=== PATIENT | female | born 1935 | race Caucasian/White ===

== ENCOUNTER 2018-06-20 09:28 | Inpatient (IN) ==
--- NOTE | 2018-06-20 10:35 | ED ---
HPI General Chief Complaint: Fall Stated Complaint: medical Time Seen by Provider: 06/20/18 09:43 Source: patient Mode of arrival: ambulatory Limitations: no limitations History of Present Illness HPI Narrative: 83-year-old female presents to the emergency department after a fall that occurred at home today. Patient states she lost her shoe while at home today, slipped, tripped and fell against a wall. She states that she fell and hit her head. She also states she had her hips. She had a difficult time determining which hip is worse but states her right is worse than her left. Says she was able to stand and ambulate to the stretcher in her home for EVAC. Patient states her pain is 9/10 and nonradiating. Denies weakness in her lower extremities. Denies use of blood thinners. Denies loss of consciousness or headache. Denies neck or back pain. MD complaint: Reports fall Onset (ago): minute(s) Fall from: standing Fall witnessed: no Place fall occurred: home Loss of consciousness: none Prolonged down time: no Symptoms prior to fall: Reports none Context: Reports tripped/slipped Location of injury: Reports head Severity: severe Quality: Reports aching Associated symptoms (after fall): Reports denies Related Data Home Medications Medication Instructions Recorded Confirmed amlodipine 5 mg PO DAILY 06/20/18 06/20/18 citalopram 20 mg PO DAILY 06/20/18 06/20/18 levothyroxine 100 mcg PO DAILY 06/20/18 06/20/18 losartan 25 mg PO DAILY 06/20/18 06/20/18 Allergies Allergy/AdvReac Type Severity Reaction Status Date / Time amitriptyline Allergy Severe Abdominal Verified 06/20/18 09:44 Pain codeine Allergy Severe Abdominal Verified 06/20/18 09:44 Pain diatrizoate meglumine Allergy Severe hives/resp Verified 06/20/18 09:44 failure gadobenic acid Allergy Severe hives/resp Verified 06/20/18 09:44 failure gadodiamide Allergy Severe hives/resp Verified 06/20/18 09:44 failure gadoteridol Allergy Severe hives/resp Verified 06/20/18 09:44 failure iodine Allergy Severe Abdominal Verified 06/20/18 09:44 Pain iodixanol Allergy Severe hives/resp Verified 06/20/18 09:44 failure iohexol Allergy Severe hives/resp Verified 06/20/18 09:44 failure lactose Allergy Severe DIARRHEA, Verified 06/20/18 09:44 HIVES morphine Allergy Severe Abdominal Verified 06/20/18 09:44 Pain penicillin G Allergy Severe Abdominal Verified 06/20/18 09:44 Pain potassium iodide Allergy Severe Agitation Verified 06/20/18 09:44 povidone-iodine Allergy Severe Agitation Verified 06/20/18 09:44 salsalate Allergy Severe Agitation Verified 06/20/18 09:44 Sulfa (Sulfonamide Allergy Severe Agitation Verified 06/20/18 09:44 Antibiotics) ALKASELTZER Allergy Severe HIVES Uncoded 11/23/13 18:26 Review of Systems ROS: all other systems reviewed are negative [facility] Social History Social History Substance History: No History of Abuse Second Hand Smoke Exposure: No Smoking Status: Former smoker Tobacco Type: Cigarettes How Often Do You Have a Drink Containing Alcohol: Never Recent Travel in [facility] within the Last 8 Weeks: No Recent Out of Country Travel within the Last 8 Weeks: No Immunization History Tetanus Immunization: <5 Years Exam Narrative Exam Narrative: GENERAL: WD, WN in NAD, laying on her right side. SKIN: Focused skin assessment warm/dry. HEAD: Atraumatic. Normocephalic. EYES: Pupils equal and round. No scleral icterus. No injection or drainage. ENT: No nasal bleeding or discharge. Mucous membranes pink and moist. No tonsillar hypertrophy or exudate. NECK: Trachea midline. No JVD. No meningismus. No midline tenderness CARDIOVASCULAR: Regular rate and rhythm. No murmur appreciated. RESPIRATORY: No accessory muscle use. Clear to auscultation. Breath sounds equal bilaterally. GASTROINTESTINAL: Abdomen soft, non-tender, nondistended. Hepatic and splenic margins not palpable. No CVAT. MUSCULOSKELETAL: No obvious deformities. No clubbing. No cyanosis. No edema. No tenderness to palpation of the calves. Sensation intact to bilateral lower extremities. TTP to bilateral hips without deformities. NEUROLOGICAL: Awake and alert. No obvious cranial nerve deficits. Motor grossly within normal limits. Normal speech. PSYCHIATRIC: Appropriate mood and affect; insight and judgment normal. Course Initial Documented Vital Signs Temperature 98.8 F 06/20/18 09:45 Pulse Rate 70 06/20/18 09:45 Respiratory Rate 16 06/20/18 09:45 Blood Pressure 157/70 H 11/23/18 09:45 Pulse Oximetry 96 06/20/18 09:45 Last Documented Vital Signs Temperature 98.8 F 06/20/18 09:45 Pulse Rate 75 06/20/18 09:51 Respiratory Rate 18 06/20/18 16:08 Blood Pressure 129/97 H 06/20/18 09:51 Pulse Oximetry 93 L 06/20/18 09:51 Medical Decision Making MDM Narrative Medical decision making narrative: 83y female presents to the ED via EVAC after a split and fall that occurred just prior to arrival. Denies LOC but did hit her head. PMHx includes HTN, hypothyroid, and anxiety. MEKHI yesterday afternoon except for hydrocodone in the ED for hip pain here in the ED. She did take her daily BASA today. Again, does not take blood thinners. Patient has a subcapital femoral neck fracture of the right hip. Labs, EKG, chest x-ray ordered as preop. Labs are stable. Of note, WBC 15.4, neutrophil % 77.1, BUN/Cr 06/28. I spoke with Dr. Nelson who will perform surgery today. Patient will be admitted to Dr. Martinez. Medical Screen Exam Complete: Yes Emergency Medical Condition: Yes Differential Diagnosis Differential Diagnosis: Right hip fracture, contusion, dislocation. Left hip fracture, contusion, abrasion, left leg fracture, head trauma Lab Data Result diagrams: 06/20/18 11:36 06/20/18 11:36 Lab Results 06/20/18 06/20/18 06/20/18 Range/Units 11:36 11:36 11:36 WBC 15.4 H (4.0-11.0) th/mm3 RBC 4.11 (4.00-5.30) mil/mm3 Hgb 11.9 (11.6-15.3) gm/dL Hct 35.1 (35.0-46.0) % MCV 85.4 (80.0-100.0) fL MCH 29.1 (27.0-34.0) pg MCHC 34.0 (32.0-36.0) % RDW 14.8 (11.6-17.2) % Plt Count 228 (150-450) th/mm3 MPV 8.5 (7.0-11.0) fL Neut % (Auto) 77.1 H (16.0-70.0) % Lymph % (Auto) 16.9 (9.0-44.0) % [place] % (Auto) 5.2 (0.0-8.0) % Eos % (Auto) 0.6 (0.0-4.0) % Baso % (Auto) 0.2 (0.0-2.0) % Neut # (Auto) 11.9 H (1.8-7.7) th/mm3 Lymph # (Auto) 2.6 (1.0-4.8) th/mm3 [place] # (Auto) 0.8 (0.0-0.9) th/mm3 Eos # (Auto) 0.1 (0.0-0.4) th/mm3 Baso # (Auto) 0.0 (0.0-0.2) th/mm3 WBC Differential . Differential Comment Auto diff final PT 10.4 (9.8-11.6) sec INR 1.0 Ratio APTT 30.5 (23.4-31.7) sec Sodium 137 (136-145) meq/L Potassium 3.8 (3.5-5.1) meq/L Chloride 100 (98-107) meq/L Carbon Dioxide 31.7 (21.0-32.0) meq/L Anion Gap 5 (5-15) meq/L BUN 12 (7-18) mg/dL Creatinine 1.31 H (0.50-1.00) mg/dL Estimated GFR 39 L (>89) mL/min Random Glucose 99 (74-106) mg/dL Calcium 8.5 (8.5-10.1) mg/dL Total Bilirubin 0.6 (0.2-1.0) mg/dL AST 30 (15-37) U/L ALT 24 (10-53) U/L Alkaline Phosphatase 67 (45-117) U/L Total Protein 7.3 (6.4-8.2) g/dL Albumin 3.8 (3.4-5.0) g/dL Urine Color (Yellw/Straw) Urine Clarity (Clear) Urine pH (5.0-8.5) Ur Specific [place] (1.002-1.035) Urine Protein (Neg-Trace) mg/dL Urine Glucose (UA) (Negative) mg/dL Urine Ketones (Negative) mg/dL Urine Occult Blood (Negative) Urine Nitrate (Negative) Urine Bilirubin (Negative) Urine Urobilinogen (Less than 2) mg/dL Ur Leukocyte Esterase (Negative) Ur Microscopic Review 06/20/18 Range/Units 15:00 WBC (4.0-11.0) th/mm3 RBC (4.00-5.30) mil/mm3 Hgb (11.6-15.3) gm/dL Hct (35.0-46.0) % MCV (80.0-100.0) fL MCH (27.0-34.0) pg MCHC (32.0-36.0) % RDW (11.6-17.2) % Plt Count (150-450) th/mm3 MPV (7.0-11.0) fL Neut % (Auto) (16.0-70.0) % Lymph % (Auto) (9.0-44.0) % [place] % (Auto) (0.0-8.0) % Eos % (Auto) (0.0-4.0) % Baso % (Auto) (0.0-2.0) % Neut # (Auto) (1.8-7.7) th/mm3 Lymph # (Auto) (1.0-4.8) th/mm3 [place] # (Auto) (0.0-0.9) th/mm3 Eos # (Auto) (0.0-0.4) th/mm3 Baso # (Auto) (0.0-0.2) th/mm3 WBC Differential Differential Comment PT (9.8-11.6) sec INR Ratio APTT (23.4-31.7) sec Sodium (136-145) meq/L Potassium (3.5-5.1) meq/L Chloride (98-107) meq/L Carbon Dioxide (21.0-32.0) meq/L Anion Gap (5-15) meq/L BUN (7-18) mg/dL Creatinine (0.50-1.00) mg/dL Estimated GFR (>89) mL/min Random Glucose (74-106) mg/dL Calcium (8.5-10.1) mg/dL Total Bilirubin (0.2-1.0) mg/dL AST (15-37) U/L ALT (10-53) U/L Alkaline Phosphatase (45-117) U/L Total Protein (6.4-8.2) g/dL Albumin (3.4-5.0) g/dL Urine Color Yellow (Yellw/Straw) Urine Clarity Clear (Clear) Urine pH 6.0 (5.0-8.5) Ur Specific [place] 1.009 (1.002-1.035) Urine Protein Negative (Neg-Trace) mg/dL Urine Glucose (UA) Negative (Negative) mg/dL Urine Ketones Negative (Negative) mg/dL Urine Occult Blood Negative (Negative) Urine Nitrate Negative (Negative) Urine Bilirubin Negative (Negative) Urine Urobilinogen Less than 2 (Less than 2) mg/dL Ur Leukocyte Esterase Negative (Negative) Ur Microscopic Review Not Reportable Imaging Data Radiologist's impression: Cervical Spine CT 06/20/18 09:55 CONCLUSION: No acute bony injury in the cervical spine Femur X-Ray 06/20/18 09:55 CONCLUSION: Intact left femur. 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 Head CT 06/20/18 09:55 CONCLUSION: 1. Stable without evidence of acute intracranial process. 2. No evidence of acute infarct, hemorrhage, mass or edema. . Hip X-Ray 06/20/18 09:55 CONCLUSION: Subcapital femoral neck fracture of the right hip. Intact bony pelvis and left hip. Hip X-Ray 06/20/18 09:55 CONCLUSION: 1. No evidence of acute fracture. 2. Superior and inferior pubic rami deformity which have the appearance of old fractures. Chest X-Ray 06/20/18 10:57 CONCLUSION: 1. Senescent changes without acute abnormality. Discharge Plan Discharge Disposition Patient Disposition: 30 Still Patient Discharge Condition Condition: Stable Discharge Details Diagnosis: Closed hip fracture Physicians Team ED Provider: Joni Jaramillo ED Midlevel Provider: Katlyn Rhoades Primary Care Provider: UNKNOWN, Attending Provider: Alex Ryder Other Providers: Micah Nelson Status ED Status: Left Department Discharge Information Discharge Date/Time: 06/20/18 15:18
--- NOTE | 2018-06-20 11:16 | CT ---
EXAM DATE: 06/20/2018 11:01 AM EST AGE/SEX: 83 years / Female INDICATIONS: Fall, hit head this morning. CLINICAL DATA: This is the patient's initial encounter. Patient reports that signs and symptoms have been present for 1 day and indicates a pain score of 6/10. MEDICAL/SURGICAL HISTORY: Hypertension. Anxiety Tonsillectomy. RADIATION DOSE: 34.92 CTDI (mGy) COMPARISON: [facility] [place] BRAIN W/O CONTRAST, 02/22/2016. . TECHNIQUE: CT of the head without contrast. Using automated exposure control and adjustment of the mA and/or kV according to patient size, radiation dose was kept as low as reasonably achievable to ob tain optimal diagnostic quality images. DICOM format image data is available electronically for revi ew and comparison. FINDINGS: Cerebrum: The ventricles are normal for age. No evidence of midline shift, mass lesion, hemorrhage or acute infarction. No extraaxial fluid collections are seen. Posterior Fossa: The cerebellum and brainstem are intact. The 4th ventricle is midline. The cerebe llopontine angle is unremarkable. Extracranial: The visualized portion of the orbits is intact. Skull: The calvaria is intact. No evidence of skull fracture. CONCLUSION: 1. Stable without evidence of acute intracranial process. 2. No evidence of acute infarct, hemorrhage, mass or edema. . Electronically signed by: Sha Coe MD 06/20/2018 11:14 AM EST
--- NOTE | 2018-06-20 11:17 | XR ---
EXAM DATE: 06/20/2018 11:07 AM EST AGE/SEX: 83 years / Female INDICATIONS: Right hip pain post fall. CLINICAL DATA: This is the patient's initial encounter. Patient reports that signs and symptoms have been present for 1 day and indicates a pain score of 10/10. MEDICAL/SURGICAL HISTORY: None. None. COMPARISON: No prior exams available for comparison. FINDINGS: A mildly impacted subcapital femoral neck fracture is noted. There is no significant angulation. Bony pelvis and left hip are intact. CONCLUSION: Subcapital femoral neck fracture of the right hip. Intact bony pelvis and left hip. Electronically signed by: Sha Coe MD 06/20/2018 11:15 AM EST
--- NOTE | 2018-06-20 11:20 | XR ---
EXAM DATE: 06/20/2018 10:54 AM EST AGE/SEX: 83 years / Female INDICATIONS: Left hip pain post fall. CLINICAL DATA: This is the patient's initial encounter. Patient reports that signs and symptoms have been present for 1 day and indicates a pain score of 3/10. MEDICAL/SURGICAL HISTORY: None. None. COMPARISON: [facility] – [place], CT ABDOMEN & PELVIS W/O CONTRAST, 01/04/2015. . FINDINGS: Focal sclerotic deformity is identified of the superior and inferior pubic rami. The hip joint is intact without evidence of fracture or dislocation. CONCLUSION: 1. No evidence of acute fracture. 2. Superior and inferior pubic rami deformity which have the appearance of old fractures. Electronically signed by: Sha Coe MD 06/20/2018 11:19 AM EST
--- NOTE | 2018-06-20 11:21 | XR ---
EXAM DATE: 06/20/2018 10:51 AM EST AGE/SEX: 83 years / Female INDICATIONS: Left leg pain post fall. CLINICAL DATA: This is the patient's initial encounter. Patient reports that signs and symptoms have been present for 1 day and indicates a pain score of 3/10. MEDICAL/SURGICAL HISTORY: None. None. COMPARISON: [facility] – [place], HIP LEFT 2V, 06/20/2018. . FINDINGS: The left femur, left hip and left knee joint appear intact. There is no evidence of acute fracture. Focal sclerotic deformity of the left superior and inferior pubic rami have a characteristic appearan ce of old fractures. There is no significant soft tissue swelling. CONCLUSION: Intact left femur. Electronically signed by: Sha Coe MD 06/20/2018 11:20 AM EST
--- NOTE | 2018-06-20 11:23 | XR ---
EXAM DATE: 06/20/2018 10:59 AM EST AGE/SEX: 83 years / Female INDICATIONS: Right femur pain post fall. CLINICAL DATA: This is the patient's initial encounter. Patient reports that signs and symptoms have been present for 1 day and indicates a pain score of 10/10. MEDICAL/SURGICAL HISTORY: None. None. COMPARISON: . FINDINGS: A subcapital femoral neck fracture of the right femur is noted. The femoral shaft is otherwise intact . Severe degenerative disease is seen of the knee joint with collapse of the lateral joint compartment. Significant valgus deformity of the knee is noted. CONCLUSION: Subcapital fracture of the right femoral neck otherwise intact femur Advanced degenerative disease of the lateral joint compartment of the knee with significant valgus de formity. Electronically signed by: Sha Coe MD 06/20/2018 11:22 AM EST
--- NOTE | 2018-06-20 11:24 | CT ---
EXAM DATE: 06/20/2018 11:06 AM EST AGE/SEX: 83 years / Female INDICATIONS: Fall today, hit head, neck pain CLINICAL DATA: This is the patient's initial encounter. Patient reports that signs and symptoms have been present for 1 day and indicates a pain score of 6/10. MEDICAL/SURGICAL HISTORY: Hypertension. Anxiety Tonsillectomy. RADIATION DOSE: 21.71 CTDI (mGy) COMPARISON: No prior exams available for comparison. TECHNIQUE: Contiguous axial images were obtained using helical multirow detector technique. The vol umetric data was post-processed with multiplanar reconstruction in oblique axial, sagittal, and coron al planes. Using automated exposure control and adjustment of the mA and/or kV according to patient s ize, radiation dose was kept as low as reasonably achievable to obtain optimal diagnostic quality sarina ges. DICOM format image data is available electronically for review and comparison. FINDINGS: Ventral cervical fusion with hardware from C5 to C7. Alignment is satisfactory. No evidence of cervic al spine fracture. No bony canal or foraminal compromise. No evidence of paraspinal hematoma CONCLUSION: No acute bony injury in the cervical spine Electronically signed by: Lorenzo Stein MD 06/20/2018 11:22 AM EST
--- NOTE | 2018-06-20 11:33 | XR ---
EXAM DATE: 06/20/2018 11:29 AM EST AGE/SEX: 83 years / Female INDICATIONS: Fall. Cough. Pre op ORIF. CLINICAL DATA: This is the patient's initial encounter. Patient reports that signs and symptoms have been present for 1 day and indicates a pain score of 2/10. MEDICAL/SURGICAL HISTORY: None. None. COMPARISON: [facility] – [place], CT CERVICAL SPINE W/O CONTRAST, 06/20/2018. . FINDINGS: Mild diffuse interstitial prominence. No new focal pleural or parenchymal opacities. The cardiomedias tinal contours are stable. Anterior fixation hardware in the lower cervical spine. Visualized osseous structures appear grossly intact. CONCLUSION: 1. Senescent changes without acute abnormality. Electronically signed by: Brett Reed MD 06/20/2018 11:31 AM EST
[2018-06-20 11:54] LABS: Baso % (Auto) 0.2 % (0.0-2.0); Eos # (Auto) 0.1 th/mm3 (0.0-0.4); Eos % (Auto) 0.6 % (0.0-4.0); Hematocrit 35.1 % (35.0-46.0); Hemoglobin 11.9 gm/dL (11.6-15.3); Lymph # (Auto) 2.6 th/mm3 (1.0-4.8); Lymph % (Auto) 16.9 % (9.0-44.0); Mean Corpuscular Hemoglobin 29.1 pg (27.0-34.0); Mean Corpuscular Volume 85.4 fL (80.0-100.0); Mean Platelet Volume 8.5 fL (7.0-11.0); Mono # (Auto) 0.8 th/mm3 (0.0-0.9); Mono % (Auto) 5.2 % (0.0-8.0); Neut # (Auto) 11.9 th/mm3 (1.8-7.7); Neut % (Auto) 77.1 % (16.0-70.0); Platelet Count 228 th/mm3 (150-450); Red Blood Count 4.11 mil/mm3 (4.00-5.30); Red Cell Distribution Width 14.8 % (11.6-17.2); White Blood Count 15.4 th/mm3 (4.0-11.0)
[2018-06-20 12:04] LABS: Activated Partial Thrombo Time 30.5 sec (23.4-31.7); Prothrombin Time 10.4 sec (9.8-11.6)
[2018-06-20 12:20] LABS: Alanine Aminotransferase 24 U/L (10-53); Albumin 3.8 g/dL (3.4-5.0); Anion Gap 5 meq/L (5-15); Aspartate Aminotransferase 30 U/L (15-37); Blood Urea Nitrogen 12 mg/dL (7-18); Calcium 8.5 mg/dL (8.5-10.1); Carbon Dioxide 31.7 meq/L (21.0-32.0); Chloride 100 meq/L (98-107); Glomerular Filtration Rate 39 mL/min (>89); Glucose,Random 99 mg/dL (74-106); Potassium 3.8 meq/L (3.5-5.1); Sodium 137 meq/L (136-145)
[2018-06-20 12:22] LABS: Alkaline Phosphatase 67 U/L (45-117); Total Protein 7.3 g/dL (6.4-8.2)
[2018-06-20] MEDS ORDERED: Acetaminophen 325 MG Tablet PO PRN (13:45)
[2018-06-20] MEDS ORDERED: HYDROmorphone PF Inj 0.5 MG/0.5 ML Syringe IV.PUSH PRN (13:46)
--- NOTE | 2018-06-20 13:54 | P.HPIM ---
History of Present Illness Primary Care Physician: UNKNOWN Chief Complaint: " I fell". History of Present Illness: patient is a 83 y/o female with history of hypertension and hypothyroidism who presented to ER after she fell at home earlier. she says that she slipped and fell at home when she was trying to fix the shower curtain. she denies any prodromal symptoms before the incident including chest pain, sob, dizziness. she didn't pass out. she was complaining of mild pain to the right hip at the time of my evaluation. otherwise she denies any other symptoms. Estimated Total Length of Stay (Days): 2 Plans for Post Hospital Care: Not yet determined PMFSH - History History Provided By: Patient - Medical History Medical History: Medical History (Last Reviewed 06/22/18 @ 09:16 by Betty Hoff) Anxiety Hypertension Surgical history unknown Thyroid disease - Family History Family History: Family History (Last Reviewed 06/21/18 @ 12:39 by Maxine Montero) Other No pertinent family history - Tobacco History Second Hand Smoke Exposure: No Tobacco Use In Past 30 Days: No Smoking Status: Former smoker Tobacco Type: Cigarettes - Alcohol History How Often Do You Have a Drink Containing Alcohol: Never - Substance Use History Substance History: No History of Abuse - Travel History Recent Travel in the [place] Within the Last 8 Weeks: No Recent Travel Out of the Country Within the Last 8 Weeks: No - Immunization History Tetanus Immunization: <5 Years Medications and Allergies Active Medications: Active Medications Acetaminophen (Tylenol) 650 mg PO Q4H PRN PRN Reason: fever Hydrocodone Bitart/Acetaminophen ([place] 10/325) 1 tab PO Q4H PRN PRN Reason: pain 6-10 Hydrocodone Bitart/Acetaminophen ([place] 5/325) 1 tab PO Q4H PRN PRN Reason: pain 1-5 Amlodipine Besylate (Norvasc) 5 mg PO DAILY BENITO Citalopram Hydrobromide (Celexa) 20 mg PO DAILY BENITO Hydromorphone HCl (Dilaudid Pf Inj) 0.2 mg IV.PUSH Q4H PRN PRN Reason: breakthrough pain Sodium Chloride (Ns Inj) 1,000 mls @ 84 mls/hr IV.CONT .[id number] BENITO Levothyroxine Sodium (Synthroid) 100 mcg PO DAILY BENITO Losartan Potassium (Cozaar) 25 mg PO DAILY BENITO Ondansetron HCl (Zofran Inj) 4 mg IV.PUSH Q8H PRN PRN Reason: nausea Sodium Chloride (Ns Flush) 2 ml IV.FLUSH UNSCH PRN PRN Reason: FLUSH AFTER USING IV ACCESS Allergies Allergy/AdvReac Type Severity Reaction Status Date / Time amitriptyline Allergy Severe Abdominal Verified 06/20/18 09:44 Pain codeine Allergy Severe Abdominal Verified 06/20/18 09:44 Pain diatrizoate meglumine Allergy Severe hives/resp Verified 06/20/18 09:44 failure gadobenic acid Allergy Severe hives/resp Verified 06/20/18 09:44 failure gadodiamide Allergy Severe hives/resp Verified 06/20/18 09:44 failure gadoteridol Allergy Severe hives/resp Verified 06/20/18 09:44 failure iodine Allergy Severe Abdominal Verified 06/20/18 09:44 Pain iodixanol Allergy Severe hives/resp Verified 06/20/18 09:44 failure iohexol Allergy Severe hives/resp Verified 06/20/18 09:44 failure lactose Allergy Severe DIARRHEA, Verified 06/20/18 09:44 HIVES morphine Allergy Severe Abdominal Verified 06/20/18 09:44 Pain penicillin G Allergy Severe Abdominal Verified 06/20/18 09:44 Pain potassium iodide Allergy Severe Agitation Verified 06/20/18 09:44 povidone-iodine Allergy Severe Agitation Verified 06/20/18 09:44 salsalate Allergy Severe Agitation Verified 06/20/18 09:44 Sulfa (Sulfonamide Allergy Severe Agitation Verified 06/20/18 09:44 Antibiotics) ALKASELTZER Allergy Severe HIVES Uncoded 11/23/13 18:26 Home Medications Medication Instructions Recorded Confirmed Type amlodipine 5 mg PO DAILY 06/20/18 06/20/18 History citalopram 20 mg PO DAILY 06/20/18 06/20/18 History levothyroxine 100 mcg PO DAILY 06/20/18 06/20/18 History losartan 25 mg PO DAILY 06/20/18 06/20/18 History Exam Vital signs: Vital Signs 06/20/18 09:45 06/20/18 09:51 06/20/18 11:55 Temperature 98.8 F Pulse Rate 70 75 Respiratory Rate 16 18 18 Blood Pressure 157/70 H 129/97 H Pulse Oximetry 96 93 L Intake & Output 06/19/18 06/20/18 06/20/18 18:59 06:59 18:59 Weight 83.915 kg - Constitutional no acute distress - Routine HEENT Exam Eye: Present: PERRL - Routine Neck Exam Present: supple - Routine Respiratory Exam Present: CTA bilaterally - Routine Cardiovascular Exam Present: RRR - Routine Abdominal Exam Present: soft - Routine Extremities Exam Comments: no pedal edema. - Routine Neurological Exam Present: alert, oriented X3 Results - Labs CBC & Chem 7: 06/21/18 09:08 06/21/18 09:08 Labs: Short CBC 06/20/18 Range/Units 11:36 WBC 15.4 H (4.0-11.0) th/mm3 Hgb 11.9 (11.6-15.3) gm/dL Hct 35.1 (35.0-46.0) % Plt Count 228 (150-450) th/mm3 BMP 06/20/18 11:36 Sodium 137 Potassium 3.8 Chloride 100 Carbon Dioxide 31.7 BUN 12 Creatinine 1.31 H Calcium 8.5 Liver Function 06/20/18 Range/Units 11:36 Total Bilirubin 0.6 (0.2-1.0) mg/dL AST 30 (15-37) U/L ALT 24 (10-53) U/L Alkaline Phosphatase 67 (45-117) U/L Albumin 3.8 (3.4-5.0) g/dL - Imaging Impressions Cervical Spine CT 06/20/18 09:55 CONCLUSION: No acute bony injury in the cervical spine Femur X-Ray 06/20/18 09:55 CONCLUSION: Intact left femur. 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 Head CT 06/20/18 09:55 CONCLUSION: 1. Stable without evidence of acute intracranial process. 2. No evidence of acute infarct, hemorrhage, mass or edema. . Hip X-Ray 06/20/18 09:55 CONCLUSION: Subcapital femoral neck fracture of the right hip. Intact bony pelvis and left hip. Hip X-Ray 06/20/18 09:55 CONCLUSION: 1. No evidence of acute fracture. 2. Superior and inferior pubic rami deformity which have the appearance of old fractures. Chest X-Ray 06/20/18 10:57 CONCLUSION: 1. Senescent changes without acute abnormality. Caprini VTE Risk Assessment Caprini VTE Risk Assessment: Moderate/High Risk (score >= 2) Caprini Risk Assessment Model: Point Value = 1 Point Value = 2 Point Value = 3 Point Value = 5 Age 41-60 Minor surgery BMI > 25 kg/m2 Swollen legs Varicose veins or History of unexplained or recurrent spontaneous Oral contraceptives or hormone replacement Sepsis (< 1 month) Serious lung disease, including pneumonia (< 1 month) Abnormal pulmonary function Acute myocardial infarction Congestive heart failure (< 1 month) History of inflammatory bowel disease Medical patient at bed rest Age 61-74 Arthroscopic surgery Major open surgery (> 45 min) Laparoscopic surgery (> 45 min) Malignancy Confined to bed (> 72 hours) Immobilizing plaster cast Central venous access Age >= 75 History of VTE Family history of VTE Factor V Leiden Prothrombin [id number] Lupus anticoagulant Anticardiolipin antibodies Elevated serum homocysteine Heparin-induced thrombocytopenia Other congenital or acquired thrombophilia Stroke (< 1 month) Elective arthroplasty Hip, pelvis, or leg fracture Acute spinal cord injury (< 1 month) Prophylaxis Regimen: Total Risk Factor Score Risk Level Prophylaxis Regimen 0-1 Low Early ambulation 2 Moderate Order ONE of the following: *Sequential Compression Device (SCD) *Heparin 5000 units SQ BID 3-4 Higher Order ONE of the following medications: *Heparin 5000 units SQ TID *Enoxaparin/Lovenox 40 mg SQ daily (WT < 150 kg, CrCl > 30 mL/min) *Enoxaparin/Lovenox 30 mg SQ daily (WT < 150 kg, CrCl > 10-29 mL/min) *Enoxaparin/Lovenox 30 mg SQ BID (WT < 150 kg, CrCl > 30 mL/min) AND/OR *Sequential Compression Device (SCD) 5 or more Highest Order ONE of the following medications: *Heparin 5000 units SQ TID (Preferred with Epidurals) *Enoxaparin/Lovenox 40 mg SQ daily (WT < 150 kg, CrCl > 30 mL/min) *Enoxaparin/Lovenox 30 mg SQ daily (WT < 150 kg, CrCl > 10-29 mL/min) *Enoxaparin/Lovenox 30 mg SQ BID (WT < 150 kg, CrCl > 30 mL/min) AND *Sequential Compression Device (SCD) Assessment and Plan - Plan A/P - fall with right femoral neck fracture keep NPO- continue with pain control / IV fluid and consult ortho. - hypertension/ hypothyroidism resume home meds. -anxiety resume home meds. DVT prophylaxis - pending ortho evaluation/ intervention. Discussed Condition With: ER midlevel and the patient. orthopaedic surgery.
--- NOTE | 2018-06-20 14:27 | P.CONOP ---
HPI Orthopedics Consult Note - HPI Consult date: 06/20/18 Chief complaint: right subcapital femur fracture PMFSH - History History Provided By: Patient - Medical History Medical History: Medical History (Last Updated 06/20/18 @ 09:51 by Sherita Rosado) Anxiety HTN (hypertension) Thyroid disease Tonsillectomy planned - Tobacco History Second Hand Smoke Exposure: No Tobacco Use In Past 30 Days: No Smoking Status: Former smoker Tobacco Type: Cigarettes - Alcohol History How Often Do You Have a Drink Containing Alcohol: Never - Substance Use History Substance History: No History of Abuse - Travel History Recent Travel in the [facility] Within the Last 8 Weeks: No Recent Travel Out of the Country Within the Last 8 Weeks: No - Immunization History Tetanus Immunization: <5 Years Medications and Allergies Active Medications: Active Medications Sodium Chloride (Ns Flush) 2 ml IV.FLUSH UNSCH PRN PRN Reason: FLUSH AFTER USING IV ACCESS Allergies Allergy/AdvReac Type Severity Reaction Status Date / Time amitriptyline Allergy Severe Abdominal Verified 06/20/18 09:44 Pain codeine Allergy Severe Abdominal Verified 06/20/18 09:44 Pain diatrizoate meglumine Allergy Severe hives/resp Verified 06/20/18 09:44 failure gadobenic acid Allergy Severe hives/resp Verified 06/20/18 09:44 failure gadodiamide Allergy Severe hives/resp Verified 06/20/18 09:44 failure gadoteridol Allergy Severe hives/resp Verified 06/20/18 09:44 failure iodine Allergy Severe Abdominal Verified 06/20/18 09:44 Pain iodixanol Allergy Severe hives/resp Verified 06/20/18 09:44 failure iohexol Allergy Severe hives/resp Verified 06/20/18 09:44 failure lactose Allergy Severe DIARRHEA, Verified 06/20/18 09:44 HIVES morphine Allergy Severe Abdominal Verified 06/20/18 09:44 Pain penicillin G Allergy Severe Abdominal Verified 06/20/18 09:44 Pain potassium iodide Allergy Severe Agitation Verified 06/20/18 09:44 povidone-iodine Allergy Severe Agitation Verified 06/20/18 09:44 salsalate Allergy Severe Agitation Verified 06/20/18 09:44 Sulfa (Sulfonamide Allergy Severe Agitation Verified 06/20/18 09:44 Antibiotics) ALKASELTZER Allergy Severe HIVES Uncoded 11/23/13 18:26 Home Medications Medication Instructions Recorded Confirmed Type amlodipine 5 mg PO DAILY 06/20/18 06/20/18 History citalopram 20 mg PO DAILY 06/20/18 06/20/18 History levothyroxine 100 mcg PO DAILY 06/20/18 06/20/18 History losartan 25 mg PO DAILY 06/20/18 06/20/18 History Exam Vital signs: Vital Signs 06/20/18 09:45 06/20/18 09:51 06/20/18 11:55 Temperature 98.8 F Pulse Rate 70 75 Respiratory Rate 16 18 18 Blood Pressure 157/70 H 129/97 H Pulse Oximetry 96 93 L Intake & Output 06/19/18 06/20/18 06/20/18 18:59 06:59 18:59 Weight 83.915 kg Results - Labs Result Diagrams: 06/20/18 11:36 06/20/18 11:36 Labs: Laboratory Results - last 24 hr 06/20/18 06/20/18 06/20/18 11:36 11:36 11:36 WBC 15.4 H RBC 4.11 Hgb 11.9 Hct 35.1 MCV 85.4 MCH 29.1 MCHC 34.0 RDW 14.8 Plt Count 228 MPV 8.5 Neut % (Auto) 77.1 H Lymph % (Auto) 16.9 Clark % (Auto) 5.2 Eos % (Auto) 0.6 Baso % (Auto) 0.2 Neut # (Auto) 11.9 H Lymph # (Auto) 2.6 Clark # (Auto) 0.8 Eos # (Auto) 0.1 Baso # (Auto) 0.0 WBC Differential . Differential Comment Auto diff final PT 10.4 INR 1.0 APTT 30.5 Sodium 137 Potassium 3.8 Chloride 100 Carbon Dioxide 31.7 Anion Gap 5 BUN 12 Creatinine 1.31 H Estimated GFR 39 L Random Glucose 99 Calcium 8.5 Total Bilirubin 0.6 AST 30 ALT 24 Alkaline Phosphatase 67 Total Protein 7.3 Albumin 3.8 - Diagnostic results Imaging: Impressions Cervical Spine CT 06/20/18 09:55 CONCLUSION: No acute bony injury in the cervical spine Femur X-Ray 06/20/18 09:55 CONCLUSION: Intact left femur. 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 Head CT 06/20/18 09:55 CONCLUSION: 1. Stable without evidence of acute intracranial process. 2. No evidence of acute infarct, hemorrhage, mass or edema. . Hip X-Ray 06/20/18 09:55 CONCLUSION: Subcapital femoral neck fracture of the right hip. Intact bony pelvis and left hip. Hip X-Ray 06/20/18 09:55 CONCLUSION: 1. No evidence of acute fracture. 2. Superior and inferior pubic rami deformity which have the appearance of old fractures. Chest X-Ray 06/20/18 10:57 CONCLUSION: 1. Senescent changes without acute abnormality.
[2018-06-20] MEDS ORDERED: HYDROmorphone PF Inj 1 MG/ML Ampul IV.PUSH PRN (15:29)
[2018-06-20 16:01] LABS: Bilirubin,Urine Negative (Negative); Clarity,Urine Clear (Clear); Color,Urine Yellow (Yellw/Straw); Glucose,Urine (UA) Negative (Negative); Leukocyte Esterase,Urine Negative (Negative); Nitrite,Urine Negative (Negative); Specific Gravity,Urine 1.009 (1.002-1.035)
[2018-06-20] MEDS: Sod Chloride 0.9% Inj 1,000 ML IV.CONT SCH (18:11)
[2018-06-20] MEDS ORDERED: Sugammadex Inj 200 MG/2 ML Vial IV.PUSH ONE (20:24)
[2018-06-20] MEDS ORDERED: Clindamycin Inj 900 MG/6 ML Vial ONE (20:59)
[2018-06-20] MEDS ORDERED: Sodium Chlor 0.9% Inj 500 ML IV.SIG SCH (21:00)
--- NOTE | 2018-06-20 21:02 | MB ---
cc: Bro ONTIVEROS DATE: 06/20/2018 CHIEF COMPLAINT: Right hip pain. HISTORY OF PRESENT ILLNESS: Mrs. Bean is an 83-year-old female who presented to [facility] after having sustained a mechanical fall. She notes that she was trying to fix a shower curtain when she fell, resulting in acute onset right hip pain and inability to bear weight. At baseline, she does walk with use of a walker assistance. She endorses pain localized to her right hip at bedside rated at 5/10 in severity. She denies pain about the remainder of the lower extremities or bilateral upper extremities. She denies paresthesias. PAST MEDICAL HISTORY: Significant for anxiety, hypertension, thyroid disease. FAMILY HISTORY: Noncontributory. SOCIAL HISTORY: Former smoker. Denies current tobacco use. Denies alcohol use. MEDICATIONS: Please see hospital record regarding full list of medications. ALLERGIES: PLEASE SEE HOSPITAL RECORD REGARDING FULL LIST OF ALLERGIES. THESE INCLUDE ALLERGIES TO AMITRIPTYLINE, CODEINE, IODINE, MORPHINE, PENICILLIN G, SULFA DRUGS, AMONG OTHERS. REVIEW OF SYSTEMS: GENERAL: No fever or chills. ABDOMEN: No nausea or vomiting. LUNGS: No wheezing or cough. CARDIOVASCULAR: No chest pain. MUSCULOSKELETAL: Right hip pain. NEUROLOGIC: No numbness or tingling. PSYCHIATRIC: No anxiety or depression. PHYSICAL EXAMINATION: GENERAL: She is alert and oriented x3 with a normal mood and affect. HEENT: Normocephalic, atraumatic. LUNGS: Nonlabored breathing. CARDIOVASCULAR: Regular rate and rhythm. No lower extremity edema. SKIN: No edema, no erythema. No open lacerations. MUSCULOSKELETAL: Focused evaluation of the right hip demonstrates a positive log roll. There is no pain with range of motion of the knee, ankle or foot. There is painless passive range of motion of the left lower and bilateral upper extremities. There is positive EHL/FHL/tibialis anterior/gastroc to the right lower extremity. Sensation is intact to the sural, saphenous, SP, DP, tibial nerve distribution to the right lower extremity. There is a 2+ DP and PT pulse. ASSESSMENT: An 83-year-old female with multiple comorbidities including hypertension, depression, hyperlipidemia, hypothyroidism, who presents with a right subcapital displaced femoral neck fracture. We did a thorough discussion with Mrs. Bean regarding our recommendations for take back to the operating room for hip bipolar hemiarthroplasty. Relevant risks, benefits and expected postoperative course of surgical management were reviewed. Risks include, but are not limited to, damage to surrounding blood vessels and nerves, infection, wound healing issues, hardware failure, hardware migration, hip dislocation, and need for future surgery. An ample opportunity was offered for questions to be. All her questions were answered to her apparent satisfaction. The patient has been medically cleared. I appreciate medicine documentation. Plan for surgery this evening for right hip bipolar hemiarthroplasty. The patient will be weightbearing as tolerated to the right lower extremity postoperatively. Physical therapy/occupational therapy consultation with disposition pending physical therapy/occupational therapy recommendations. We will start deep venous thrombosis prophylaxis postoperatively. Bro Nelson MD, CM/rw , 08:38 PM , 08:47 PM
[2018-06-20] MEDS ORDERED: Tranexamic Acid Inj 1,000 MG/10 ML Ampul ONE ×2 (21:23→22:15)
[2018-06-20] MEDS ORDERED: Clindamycin 900 mg/NS Premix 900 MG/50 ML PIGGYBACK IV.SIG SCH (22:00)
--- NOTE | 2018-06-20 23:12 | MP ---
cc: ,Bro Nelson DATE OF OPERATION: 06/20/2018 PREOPERATIVE DIAGNOSIS: Right femoral neck fracture. POSTOPERATIVE DIAGNOSIS: Right femoral neck fracture. OPERATION PERFORMED: Right hip bipolar hemiarthroplasty. SURGEON: Bro Nelson MD ANESTHESIA: General. ESTIMATED BLOOD LOSS: 350 mL. FLUIDS: Per anesthesia record. URINE OUTPUT: Per anesthesia record. SPECIMENS: None. COMPLICATIONS: None. IMPLANTS: Exactech Novation bipolar hemiarthroplasty size 13 femoral stem, standard offset, 46 mm bipolar component and a cobalt chromium head size 28 mm with a 20 mm, +0 mm. INDICATIONS FOR PROCEDURE: Please see history and physical for complete details. In summary, Mrs. Bean is an 83-year-old female who sustained a mechanical fall at her home, resulting in a right femoral neck fracture. Orthopedic surgery consultation was requested in the ER. We discussed our recommendations for right hip bipolar hemiarthroplasty. Relevant risks, benefits, expected postoperative course of surgical management were reviewed. Risks include, but are not limited to, damage to surrounding blood vessels or nerves, infection, wound healing issues, hardware failure, stem subsidence, dislocation, continued pain, limb length discrepancy, and need for future surgery. An ample opportunity was offered for questions to be answered and all her questions were answered to her apparent satisfaction. She agreed to proceed with surgery as per consent. DESCRIPTION OF PROCEDURE: The patient was identified in the preoperative holding area and the operative site was marked. She was then brought back to the operating room under the care of the anesthesiology team and positioned supine on the OR table. All bony prominences were padded. General anesthesia was then induced without untoward effect and endotracheal intubation was performed. The patient was then positioned in the left lateral decubitus position with the right side facing the ceiling. The right lower extremity was then prepped and draped in a routine strict and sterile fashion using triple prep solution and occlusive draping. A per protocol timeout was performed, during which the patient's identity, site, side and nature of procedure were confirmed. Prophylactic preoperative antibiotics were administered. Additionally, 1 g of TXA was administered in the beginning of the procedure and also at the end at the time of closure. A standard posterolateral approach was performed using sharp dissection through skin and subcutaneous tissues. The fascia was incised in line with the skin incision and gluteus edwin fibers were spread atraumatically. The short external rotators and capsule were taken off the femur as close as possible to the femur, maintaining maximal length for later repair. These were tagged with #2 FiberWire sutures for later repair. The hip was then dislocated without difficulty. The femoral neck fracture was identified. At this point in time, a femoral neck cut was performed, noting to be approximately 15 mm proximal to the level of the proximal extent of the lesser trochanter. At this point in time, a bone hook was used to retract the proximal femur and a conical reamer was utilized to enter the femoral head. The femoral head was then removed. This was sized and measured approximately 46 mm head size. Attention was then turned to the acetabulum. Care was taken to ensure that there was no evident bony debris within the acetabulum. This was removed. The 46 mm trial was then inserted, which had excellent suction fit and it was determined to be appropriate size. Attention was then turned to the femur. The appropriate posterolateral starting portal in the femur was created using the box strapper. The canal was identified and overhanging neck was removed with use of a conical reamer. The broaching was then done, starting with a size 9 mm broach up to a size 13 mm broach, with appropriate lateralization and anteversion. Trialing was then done and a standard neck length size in neutral was selected. The final implant was inserted and impacted gently into position with excellent press fit, rotational stability and metaphyseal fill. The trunnion was cleaned and dried and the bipolar component was then inserted and secured. The hip was then reduced. With the final implants in position, the soft tissue tension was appropriate. Leg length amish was appropriate. The hip was very stable to provocative testing including full flexion and extension, external rotation. There is no impingement or dislocation. At mid flexion, we can internally rotate the hip to 70 degrees. At 90 degrees of flexion, we can internally rotate the hip to 70 degrees without impingement or dislocation. The hip was considered very stable. The sciatic nerve was tension free, continuous in its entirety. The hip was then thoroughly lavaged. Hemostasis was achieved. The short external rotators and capsule were repaired back to the femur with #2 FiberWires through transosseous tunnels. The superior capsulotomy, as well as the quadratus femoris were repaired back to the femur with #1 Vicryl sutures. The fascia was closed with #1 Vicryl sutures in a vertical mattress manner with excellent mechanical closure. This was oversewn with a #1 Stratafix suture in a running manner with excellent watertight closure. Subcutaneous tissue was closed in layers. The deeper layer was closed with 2-0 Vicryl in interrupted fashion. The superficial layer was closed with 2-0 Vicryl as well as 2-0 Stratafix in a running fashion. Skin was closed with 4-0 Monocryl in a subcuticular manner and reinforced with Dermabond. A dry dressing consisting of Optifoam was then placed. This completed the case. The patient was reversed from anesthesia and transferred to the PACU in stable condition. At the conclusion of the case, all sponge and needle counts were correct x2. I was present for the entire duration of the case. POSTOPERATIVE RECOMMENDATIONS: 1. Weightbearing as tolerated to the right lower extremity. Posterior hip precautions x6 weeks. 2. Occupational therapy/physical therapy consultation for the above precautions and for discharge coordination. 3. Plan for discharge to assisted facility at time of discharge. 4. Deep venous thrombosis prophylaxis with Lovenox 40 mg subcutaneous x6 weeks. 5. Outpatient up with Dr. Nelson in 2-3 weeks. Bro Nelson MD, CM/regino , 10:43 PM , 10:54 PM
[2018-06-20] MEDS ORDERED: fentaNYL Citrate Inj 100 MCG/2 ML Ampul ONE (23:17)
[2018-06-20] MEDS ORDERED: *Meperidine Inj 25 MG/ML Vial PERIprocedural Use ONLY ONE (23:17)
[2018-06-20] MEDS ORDERED: *HYDROmorphone PF Inj 1 MG/ML Ampul PERIprocedural Use ONLY ONE (23:35)
--- NOTE | 2018-06-20 23:53 | XR ---
EXAM DATE: 06/20/2018 11:42 PM EST AGE/SEX: 83 years / Female INDICATIONS: Post right hip arthroplasty. CLINICAL DATA: This is the patient's subsequent encounter. Patient reports that signs and symptoms h ave been present for 1 day and indicates a pain score of Nonresponsive. MEDICAL/SURGICAL HISTORY: Hypertension. Gastroesophageal reflux disease. Hyperthyroidism. Cho lecystectomy. Hysterectomy. Right hip arthroplasty. COMPARISON: No prior exams available for comparison. FINDINGS: Postoperative right total hip replacement. Normal alignment. No complicating features identified. 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 CONCLUSION: Postoperative right total hip replacement. No acute bony abnormality. Electronically signed by: Micah Mott MD 06/20/2018 11:51 PM EST
[2018-06-21] MEDS: Sod Chloride 0.9% Inj 1,000 ML IV.CONT SCH ×2 (02:39→15:51)
[2018-06-21] MEDS: Clindamycin 900 mg/NS Premix 900 MG/50 ML PIGGYBACK IV.SIG SCH ×3 (06:12→21:10)
[2018-06-21] MEDS: Enoxaparin Inj 40 MG/0.4 ML Syringe SQ SCH (08:41)
[2018-06-21] MEDS: amLODIPine 5 MG Tablet PO SCH (08:41)
[2018-06-21] MEDS: Citalopram 20 MG Tablet PO SCH (08:41)
[2018-06-21] MEDS: Levothyroxine 100 MCG Tablet PO SCH (08:41)
--- NOTE | 2018-06-21 08:52 | P.PNOP ---
Subjective Interval history: No overnight events. Pain well controlled this morning. Physical Exam Vital signs: Vital Signs 06/20/18 09:45 06/20/18 09:51 06/20/18 11:55 Temperature 98.8 F Pulse Rate 70 75 Respiratory Rate 16 18 18 Blood Pressure 157/70 H 129/97 H Pulse Oximetry 96 93 L 06/20/18 16:00 06/20/18 16:08 06/20/18 18:15 Temperature 97.5 F L Pulse Rate 79 Respiratory Rate 18 18 18 Blood Pressure 143/66 H Pulse Oximetry 92 L 06/20/18 19:45 06/20/18 23:10 06/20/18 23:15 Temperature 98.3 F 97.4 F L Pulse Rate 79 93 H 111 H Respiratory Rate 17 16 28 H Blood Pressure 145/64 H 119/85 140/56 L Pulse Oximetry 92 L 92 L 89 L 06/20/18 23:30 06/20/18 23:45 06/21/18 00:00 Temperature 97.4 F L Pulse Rate 87 78 69 Respiratory Rate 17 12 12 Blood Pressure 128/59 L 119/58 L 132/59 L Pulse Oximetry 96 96 94 L 06/21/18 00:40 06/21/18 00:52 06/21/18 03:55 Temperature 97.4 F L 98.2 F Pulse Rate 65 68 Respiratory Rate 16 17 Blood Pressure 135/63 111/56 L Pulse Oximetry 93 L 93 L 94 L 06/21/18 08:00 Temperature 97.6 F Pulse Rate 66 Respiratory Rate 20 Blood Pressure 119/58 L Pulse Oximetry 95 Intake & Output 06/20/18 06/21/18 06/21/18 18:59 06:59 18:59 Intake Total 3780 / 3780 Output Total 650 / 650 750 / 750 Balance -650 / -650 3030 / 3030 Weight 83.915 kg 83.9 kg Intake: IV 1550 / 1550 NS Inj 1,000 ML @ 84 mls/hr IV. 1000 / 1000 CONT .[id number] [facility] Rx#:[id number] Cleocin 900 mg/NS Premix 900 mg 50 / 50 In 50 ml @ 100 mls/hr IV.SIG Q8H [facility] Rx#:[id number] LR 1000 mL Inj 500 ML @ As 500 / 500 Directed IV.SIG .Q0M ONE Rx#: [id number] Oral 130 / 130 Anesthesia Amount 2100 / 2100 Output: Estimated Blood Loss 350 / 350 Urine Amount (Catheter) 650 / 650 400 / 400 Indwelling Urethral Catheter 650 / 650 400 / 400 Other: Date of Last Bowel Movement 06/19/18 Weight On Admission 83.9 kg - Routine Extremities Exam Comments: Focused evaluation of the right lower extremity demonstrates positive EHL/FHL/ tibialis anterior/gastroc. Sensation is intact to the sural, saphenous, SP, DP , tibial nerve distribution. There is a 2+ DP and PT pulse. Right lateral hip dressings is clean dry intact. - Urinary Catheter Management Indwelling Urethral Catheter Cath placed during this visit: yes Reason for continuing: Hourly intake/output Insertion date: 06/20/18 Insertion time: 12:00 Results - Labs CBC & Chem 7: 06/20/18 11:36 06/20/18 11:36 Laboratory Results - last 24 hr 06/20/18 06/20/18 06/20/18 11:36 11:36 11:36 WBC 15.4 H RBC 4.11 Hgb 11.9 Hct 35.1 MCV 85.4 MCH 29.1 MCHC 34.0 RDW 14.8 Plt Count 228 MPV 8.5 Neut % (Auto) 77.1 H Lymph % (Auto) 16.9 Rooks % (Auto) 5.2 Eos % (Auto) 0.6 Baso % (Auto) 0.2 Neut # (Auto) 11.9 H Lymph # (Auto) 2.6 [place]s # (Auto) 0.8 Eos # (Auto) 0.1 Baso # (Auto) 0.0 WBC Differential . Differential Comment Auto diff final PT 10.4 INR 1.0 APTT 30.5 Sodium 137 Potassium 3.8 Chloride 100 Carbon Dioxide 31.7 Anion Gap 5 BUN 12 Creatinine 1.31 H Estimated GFR 39 L Random Glucose 99 Calcium 8.5 Total Bilirubin 0.6 AST 30 ALT 24 Alkaline Phosphatase 67 Total Protein 7.3 Albumin 3.8 Urine Color Urine Clarity Urine pH Ur Specific [place] Urine Protein Urine Glucose (UA) Urine Ketones Urine Occult Blood Urine Nitrate Urine Bilirubin Urine Urobilinogen Ur Leukocyte Esterase Ur Microscopic Review Blood Type Antibody Screen MTS Gel Crossmatch 06/20/18 06/20/18 06/20/18 15:00 19:41 19:41 WBC RBC Hgb Hct MCV MCH MCHC RDW Plt Count MPV Neut % (Auto) Lymph % (Auto) [place]ook[place] % (Auto) Eos % (Auto) Baso % (Auto) Neut # (Auto) Lymph # (Auto) [place] # (Auto) Eos # (Auto) Baso # (Auto) WBC Differential Differential Comment PT INR APTT Sodium Potassium Chloride Carbon Dioxide Anion Gap BUN Creatinine Estimated GFR Random Glucose Calcium Total Bilirubin AST ALT Alkaline Phosphatase Total Protein Albumin Urine Color Yellow Urine Clarity Clear Urine pH 6.0 Ur Specific [place] 1.009 Urine Protein Negative Urine Glucose (UA) Negative Urine Ketones Negative Urine Occult Blood Negative Urine Nitrate Negative Urine Bilirubin Negative Urine Urobilinogen Less than 2 Ur Leukocyte Esterase Negative Ur Microscopic Review Not Reportable Blood Type O Positive Antibody Screen Negative MTS Gel Crossmatch See Detail - Imaging Impressions Hip X-Ray 06/20/18 00:00 CONCLUSION: Postoperative right total hip replacement. No acute bony abnormality. Cervical Spine CT 06/20/18 09:55 CONCLUSION: No acute bony injury in the cervical spine Femur X-Ray 06/20/18 09:55 CONCLUSION: Intact left femur. 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 Head CT 06/20/18 09:55 CONCLUSION: 1. Stable without evidence of acute intracranial process. 2. No evidence of acute infarct, hemorrhage, mass or edema. . Hip X-Ray 06/20/18 09:55 CONCLUSION: Subcapital femoral neck fracture of the right hip. Intact bony pelvis and left hip. Hip X-Ray 06/20/18 09:55 CONCLUSION: 1. No evidence of acute fracture. 2. Superior and inferior pubic rami deformity which have the appearance of old fractures. Chest X-Ray 06/20/18 10:57 CONCLUSION: 1. Senescent changes without acute abnormality. Assessment and Plan - Assessment and Plan Postop day 1 status post right bipolar hemiarthroplasty for fracture 1. Weightbearing as tolerated to the right lower extremity. Posterior hip precautions x6 weeks. 2. Occupational therapy/physical therapy consultation for the above precautions and for discharge coordination. 3. Plan for discharge to [facility] facility at time of discharge. 4. Deep venous thrombosis prophylaxis with Lovenox 40 mg subcutaneous x6 weeks. 5. Outpatient up with Dr. Nelson in 2-3 weeks.
[2018-06-21 09:38] LABS: Baso % (Auto) 0.3 % (0.0-2.0); Eos # (Auto) 0.1 th/mm3 (0.0-0.4); Eos % (Auto) 0.4 % (0.0-4.0); Hematocrit 33.6 % (35.0-46.0); Hemoglobin 11.2 gm/dL (11.6-15.3); Lymph # (Auto) 0.7 th/mm3 (1.0-4.8); Lymph % (Auto) 4.6 % (9.0-44.0); Mean Corpuscular HGB Conc 33.2 % (32.0-36.0); Mean Corpuscular Hemoglobin 29.5 pg (27.0-34.0); Mean Corpuscular Volume 88.9 fL (80.0-100.0); Mean Platelet Volume 8.8 fL (7.0-11.0); Mono # (Auto) 0.3 th/mm3 (0.0-0.9); Neut # (Auto) 14.3 th/mm3 (1.8-7.7); Neut % (Auto) 92.7 % (16.0-70.0); Platelet Count 217 th/mm3 (150-450); Red Blood Count 3.78 mil/mm3 (4.00-5.30); White Blood Count 15.4 th/mm3 (4.0-11.0)
[2018-06-21 09:55] LABS: Calcium 7.7 mg/dL (8.5-10.1); Carbon Dioxide 26.5 meq/L (21.0-32.0); Potassium 4.2 meq/L (3.5-5.1)
--- NOTE | 2018-06-21 11:14 | P.PNIM ---
Subjective Interval history: Follow up fall with right femoral neck fracture status post right hip bipolar hemiarthroplasty, hypertension, anxiety, hypothyroidism Patient is resting in bed. She states she tolerated her diet. No abdominal discomfort, nausea or vomiting. No chest pain, shortness of breath, cough, fever or chills. Patient is able to wiggle her right toes. Sensation to right lower extremity intact. Patient denies pain and states she recently took her pain medication. Physical Exam Vital signs: Last Vital Signs Temp 97.6 F 06/21/18 08:00 Pulse 66 06/21/18 08:00 Resp 20 06/21/18 08:00 BP 119/58 L 06/21/18 08:00 Pulse Ox 95 06/21/18 08:00 Intake & Output 06/19/18 06/20/18 06/21/18 06/22/18 06:59 06:59 06:59 06:59 Intake Total 3780 / 3780 Output Total 1400 / 1400 Balance 2380 / 2380 Weight 83.9 kg Narrative: GENERAL: no acute distress, well developed, well nourished SKIN: Warm and dry, no rash HEAD: Normocephalic, atraumatic EYES: No scleral icterus. No injection or drainage. NECK: Supple, trachea midline. No JVD or lymphadenopathy. CARDIOVASCULAR: Regular rate and rhythm without murmurs, gallops, or rubs. RESPIRATORY: Breath sounds equal bilaterally. No accessory muscle use. GASTROINTESTINAL: Abdomen soft, non-tender, nondistended. MUSCULOSKELETAL: No cyanosis, or edema. RLE NV intact. Urinary Catheter Management Indwelling Urethral Catheter: Cath placed during this visit: yes Urethral indwelling: No Insertion date: 06/20/18 Insertion time: 12:00 Results Labs CBC & Chem 7: 06/21/18 09:08 06/21/18 09:08 Imaging Imaging: Impressions Hip X-Ray 06/20/18 00:00 CONCLUSION: Postoperative right total hip replacement. No acute bony abnormality. Cervical Spine CT 06/20/18 09:55 CONCLUSION: No acute bony injury in the cervical spine Femur X-Ray 06/20/18 09:55 CONCLUSION: Intact left femur. 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 Head CT 06/20/18 09:55 CONCLUSION: 1. Stable without evidence of acute intracranial process. 2. No evidence of acute infarct, hemorrhage, mass or edema. . Hip X-Ray 06/20/18 09:55 CONCLUSION: Subcapital femoral neck fracture of the right hip. Intact bony pelvis and left hip. Hip X-Ray 06/20/18 09:55 CONCLUSION: 1. No evidence of acute fracture. 2. Superior and inferior pubic rami deformity which have the appearance of old fractures. Chest X-Ray 06/20/18 10:57 CONCLUSION: 1. Senescent changes without acute abnormality. Assessment and Plan Plan Patient is a 83 year old female with a past medical history significant for hypertension, anxiety, and hypothyroidism. She fell in her home prior to arrival and suffered a rigth femoral neck fracture. Fall injury with right femoral neck fracture status post right bipolar hemiarthroplasty - evaluated 06/21/18 -POD #1 -primary mgmt per Ortho -weight bearing as tolerated to RLE -PT/OT eval and treat -pain meds PRN -Lovenox Subcu -outpatient f/u with Dr Choi in 2-3 weeks Hypertension, chronic - evaluated 06/21/18, stable -continue home meds -continue to monitor vital signs per unit protocol Hypothyroidism, chronic - evaluated 06/21/18 -continue home meds Anxiety, stable - evaluted 06/21/18 -continue home meds MDM: self Code: Full GI ppx: PO intake DVT ppx: Lovenox Subcu Dispo: SNF, CM consulted and following Progress Note: Quality VTE Deep Vein Thrombosis/Pulmonary Embolism Present on Admission: No
--- NOTE | 2018-06-21 13:49 | ECG ---
Date Performed: 06/20/2018 Time Performed: 11:47:05 PTAGE: 83 years EKG: Sinus rhythm NONSPECIFIC T-WAVE ABNORMALITY BORDERLINE ECG PREVIOUS TRACING : 02/22/2016 10.57 Since the previous tracing, no significant change noted DOCTOR: Clay Preston Interpretating Date/Time 06/21/2018 13:46:43
[2018-06-22] MEDS: Sod Chloride 0.9% Inj 1,000 ML IV.CONT SCH ×2 (04:26→19:21)
--- NOTE | 2018-06-22 08:12 | P.PNOP ---
Subjective Interval history: No acute events. Pain well controlled this morning. Physical Exam Vital signs: Vital Signs 06/21/18 12:00 06/21/18 16:00 06/21/18 20:00 Temperature 98.2 F 97.9 F 97.9 F Pulse Rate 78 68 76 Respiratory Rate 20 20 18 Blood Pressure 134/63 128/65 127/61 Pulse Oximetry 97 98 94 L 06/21/18 22:05 06/22/18 00:00 06/22/18 03:07 Temperature 97.9 F Pulse Rate 71 Respiratory Rate 18 17 18 Blood Pressure 129/60 Pulse Oximetry 94 L 06/22/18 04:00 Temperature 98.0 F Pulse Rate 74 Respiratory Rate 17 Blood Pressure 125/61 Pulse Oximetry 96 Intake & Output 06/21/18 06/22/18 06/22/18 18:59 06:59 18:59 Intake Total 670 / 670 1050 / 1050 Output Total 300 / 300 500 / 500 Balance 370 / 370 550 / 550 Weight 99 kg Intake: IV 50 / 50 1050 / 1050 NS Inj 1,000 ML @ 84 mls/hr IV. 0 / 0 1000 / 1000 CONT .[id number] [facility] Rx#:[id number] Cleocin 900 mg/NS Premix 900 mg 50 / 50 50 / 50 In 50 ml @ 100 mls/hr IV.SIG Q8H [facility] Rx#:[id number] Oral 620 / 620 Output: Urine 300 / 300 Urine Amount (Catheter) 500 / 500 Straight 500 / 500 Other: Date of Last Bowel Movement 06/19/18 06/19/18 - Routine Extremities Exam Comments: Focused evaluation of the right lower extremity demonstrates positive EHL/FHL/ tibialis anterior/gastroc. Sensation is intact to the sural, saphenous, SP, DP , tibial nerve distribution. There is a 2+ DP and PT pulse. Right lateral hip dressings is clean dry intact. - Urinary Catheter Management Indwelling Urethral Catheter Cath placed during this visit: yes, but has since been removed by the nurse Urethral indwelling: No Reason for continuing: Decision to DC catheter Insertion date: 06/20/18 Insertion time: 12:00 Removal date: 06/21/18 Removal time: 18:20 Straight Cath placed during this visit: yes, but has since been removed by the nurse Reason for continuing: Decision to DC catheter Insertion date: 06/22/18 Insertion time: 02:00 Removal date: 06/22/18 Removal time: 02:10 Results - Labs CBC & Chem 7: 06/21/18 09:08 06/21/18 09:08 Laboratory Results - last 24 hr 06/20/18 06/21/18 06/21/18 19:41 09:08 09:08 WBC 15.4 H RBC 3.78 L Hgb 11.2 L Hct 33.6 L MCV 88.9 D MCH 29.5 MCHC 33.2 RDW 15.0 Plt Count 217 MPV 8.8 Neut % (Auto) 92.7 H Lymph % (Auto) 4.6 L [place] % (Auto) 2.0 Eos % (Auto) 0.4 Baso % (Auto) 0.3 Neut # (Auto) 14.3 H Lymph # (Auto) 0.7 L [place] # (Auto) 0.3 Eos # (Auto) 0.1 Baso # (Auto) 0.0 WBC Differential . Differential Comment Auto diff final Sodium 138 Potassium 4.2 Chloride 102 Carbon Dioxide 26.5 Anion Gap 10 BUN 11 Creatinine 1.30 H Estimated GFR 39 L Random Glucose 157 H Calcium 7.7 L D MTS Gel Crossmatch See Detail Assessment and Plan - Assessment and Plan Postop day 1 status post right bipolar hemiarthroplasty for fracture 1. Weightbearing as tolerated to the right lower extremity. Posterior hip precautions x6 weeks. 2. Occupational therapy/physical therapy consultation for the above precautions and for discharge coordination. 3. [facility] of [facility]. 4. Deep venous thrombosis prophylaxis with Lovenox 40 mg subcutaneous x6 weeks. 5. Outpatient up with Dr. Nelson in 2-3 weeks. Cleared for discharge from an ortho standpoint.
[2018-06-22] MEDS: amLODIPine 5 MG Tablet PO SCH (08:19)
[2018-06-22] MEDS: Citalopram 20 MG Tablet PO SCH (08:19)
[2018-06-22] MEDS: Levothyroxine 100 MCG Tablet PO SCH (08:19)
[2018-06-22] MEDS: Enoxaparin Inj 40 MG/0.4 ML Syringe SQ SCH (08:29)
--- NOTE | 2018-06-22 13:51 | P.PNIM ---
Subjective Interval history: Follow up fall with right femoral neck fracture status post right hip bipolar hemiarthroplasty, hypertension, anxiety, hypothyroidism Patient is lying in bed. She states she has been feeling nauseated after taking a handful of her morning pills. Patient denies pain to right lower extremity at present time. She is in the process of deciding on a short term rehab facility. CM provided patient with options of facilities to choose from. She states she has it narrowed down to 2 but will have to discuss with some friends who may have been to those facilities. Patient denies cough, fevers or chills. Physical Exam Vital signs: Last Vital Signs Temp 98.4 F 06/22/18 12:00 Pulse 82 06/22/18 12:00 Resp 18 06/22/18 12:00 BP 132/66 06/22/18 12:00 Pulse Ox 97 06/22/18 12:00 Intake & Output 06/20/18 06/21/18 06/22/18 06/23/18 06:59 06:59 06:59 06:59 Intake Total 3780 / 3780 1720 / 1720 Output Total 1400 / 1400 800 / 800 Balance 2380 / 2380 920 / 920 Weight 83.9 kg 99 kg Narrative: GENERAL: no acute distress, well developed, well nourished SKIN: Warm and dry, no rash HEAD: Normocephalic, atraumatic EYES: No scleral icterus. No injection or drainage. NECK: Supple, trachea midline. No JVD or lymphadenopathy. CARDIOVASCULAR: Regular rate and rhythm without murmurs, gallops, or rubs. RESPIRATORY: Breath sounds equal bilaterally. No accessory muscle use. GASTROINTESTINAL: Abdomen soft, non-tender, nondistended. MUSCULOSKELETAL: No cyanosis, or edema. RLE NV intact. Urinary Catheter Management Indwelling Urethral Catheter: Cath placed during this visit: yes, but has since been removed by the nurse Urethral indwelling: No Insertion date: 06/20/18 Insertion time: 12:00 Removal date: 06/21/18 Removal time: 18:20 Straight: Cath placed during this visit: yes, but has since been removed by the nurse Insertion date: 06/22/18 Insertion time: 02:00 Removal date: 06/22/18 Removal time: 02:10 Results Labs CBC & Chem 7: 06/21/18 09:08 06/21/18 09:08 Assessment and Plan Plan Patient is a 83 year old female with a past medical history significant for hypertension, anxiety, and hypothyroidism. She fell in her home prior to arrival and suffered a rigth femoral neck fracture. Fall injury with right femoral neck fracture status post right bipolar hemiarthroplasty - evaluated 06/22/18 -POD #1 -primary mgmt per Ortho -weight bearing as tolerated to RLE -PT/OT eval and treat -pain meds PRN -Lovenox Subcu -outpatient f/u with Dr Choi in 2-3 weeks Nausea w/o vomiting - evaluated 06/22/18 -zofran IV Hypertension, chronic - evaluated 06/22/18, stable -continue home meds -continue to monitor vital signs per unit protocol Hypothyroidism, chronic - evaluated 06/22/18 -continue home meds Anxiety, stable - evaluted 06/22/18 -continue home meds MDM: self Code: Full GI ppx: PO intake DVT ppx: Lovenox Subcu Dispo: SNF, CM consulted and following. Patient to decide between two facilities and CM will start process of obtaining auth. Probable discharge tomorrow. Progress Note: Quality VTE Deep Vein Thrombosis/Pulmonary Embolism Present on Admission: No
[2018-06-23] MEDS: Enoxaparin Inj 40 MG/0.4 ML Syringe SQ SCH (08:50)
[2018-06-23] MEDS: Citalopram 20 MG Tablet PO SCH (08:50)
[2018-06-23] MEDS: amLODIPine 5 MG Tablet PO SCH (08:50)
[2018-06-23] MEDS: Levothyroxine 100 MCG Tablet PO SCH (08:50)
--- NOTE | 2018-06-23 12:34 | P.PN ---
Subjective Interval history: Follow-up visit for right femoral neck fracture. Patient seen and examined sitting up in chair in no acute distress. She reports some pain this morning as she just received pain medication not too long ago. Denies any further nausea or vomiting. Complains that yesterday she had nausea and vomiting following surgery. Denies any fevers, chills, dysuria, shortness of breath or chest pain. Physical Exam Vital signs: Vital Signs 06/22/18 20:00 06/23/18 00:00 06/23/18 08:00 Temperature 98.0 F 98.1 F 98.6 F Pulse Rate 89 80 77 Respiratory Rate 17 17 18 Blood Pressure 142/63 H 167/72 H 108/56 L Pulse Oximetry 95 93 L Intake & Output 06/22/18 06/23/18 06/23/18 18:59 06:59 18:59 Intake Total 420 / 420 Balance 420 / 420 Weight 99.4 kg Intake: IV 420 / 420 NS Inj 1,000 ML @ 84 mls/hr IV. 420 / 420 CONT .[id number] COUNTS INCLUDE 234 BEDS AT [facility] Rx#:[id number] Other: # Voids 6 10 Date of Last Bowel Movement 06/19/18 06/23/18 Narrative: GENERAL: no acute distress, well developed, well nourished SKIN: Warm and dry. Right hip dressing dry and intact. HEAD: Normocephalic, atraumatic EYES: No scleral icterus. No injection or drainage. NECK: Supple, trachea midline. CARDIOVASCULAR: Regular rate and rhythm without murmurs, gallops, or rubs. RESPIRATORY: Breath sounds equal bilaterally. No accessory muscle use. GASTROINTESTINAL: Abdomen soft, non-tender, nondistended, positive bowel sounds. MUSCULOSKELETAL: No cyanosis, or edema. Moving all extremities. Right foot positive sensation, capillary refill less than 3 seconds, positive movement. - Urinary Catheter Management Indwelling Urethral Catheter Cath placed during this visit: yes, but has since been removed by the nurse Urethral indwelling: No Reason for continuing: Decision to DC catheter Insertion date: 06/20/18 Insertion time: 12:00 Removal date: 06/21/18 Removal time: 18:20 Straight Cath placed during this visit: yes, but has since been removed by the nurse Reason for continuing: Decision to DC catheter Insertion date: 06/22/18 Insertion time: 02:00 Removal date: 06/22/18 Removal time: 02:10 Results - Labs CBC & Chem 7: 06/21/18 09:08 06/21/18 09:08 Assessment and Plan - Plan Patient is a 83 year old female with a past medical history significant for hypertension, anxiety, and hypothyroidism. She fell in her home prior to arrival and suffered a rigth femoral neck fracture. 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
[2018-06-24 06:51] VITALS: RESP 18
[2018-06-24 08:56] VITALS: BP 165/72; PULSE 74; TEMP 97; O2SAT 93
[2018-06-24] MEDS: Enoxaparin Inj 40 MG/0.4 ML Syringe SQ SCH (09:45)
[2018-06-24] MEDS: Levothyroxine 100 MCG Tablet PO SCH (09:46)
[2018-06-24] MEDS: Citalopram 20 MG Tablet PO SCH (09:46)
[2018-06-24] MEDS: amLODIPine 5 MG Tablet PO SCH (09:46)
--- NOTE | 2018-06-24 10:12 | P.DS ---
Date of admission: 06/20/18 13:47 Primary care physician: UNKNOWN Attending physician on discharge: Christina Oliveiraml Anticipated date of discharge: 06/24/18 Brief History from admission: patient is a 83 y/o female with history of hypertension and hypothyroidism who presented to ER after she fell at home earlier. she says that she slipped and fell at home when she was trying to fix the shower curtain. she denies any prodromal symptoms before the incident including chest pain, sob, dizziness. she didn't pass out. she was complaining of mild pain to the right hip at the time of my evaluation. otherwise she denies any other symptoms. DS: Medications - Discharge Medications Prescriptions: enoxaparin [Lovenox] 40 mg SUBCUT DAILY #42 ml oxycodone-acetaminophen [Percocet] 1 tab PO Q4-6H PRN #42 tab PRN Reason: Acute Pain Exception DS: Summary Hospital Course: 83-year-old female with past medical history significant for HTN, hypothyroidism and anxiety who presented to the emergency department after a fall resulting in right femoral neck fracture. Orthopedic services was consulted and patient underwent right hip bipolar hemiarthroplasty by Dr. Nelson on 06/20. Following surgery patient's H&H was stable. She was seen and evaluated by PT who recommended physical therapy at rehab. She was cleared by orthopedic team for discharge. Partial weightbearing to right lower extremity with posterior hip precautions for 6 weeks. Continue Lovenox for 6 weeks for DVT prophylaxis and follow-up with Dr. Miller in 2-3 weeks. She was seen and examined earlier today resting in bed in no acute distress. Denies any fevers, chills, nausea, vomiting or diarrhea. Patient does endorse some constipation although nurse reports last bowel movement was overnight, discussed additional laxatives today. She is looking forward to going to rehab today. - Time Spent with Patient Total time spent providing and/or coordinating discharge services: Greater than 30 minutes - Quality: VTE Deep Vein Thrombosis/Pulmonary Embolism Present on Admission: No Exam Vital signs: Vital Signs 06/23/18 12:10 06/23/18 16:00 06/23/18 20:00 Temperature 97.9 F 98.8 F 97.9 F Pulse Rate 84 82 79 Respiratory Rate 17 17 18 Blood Pressure 152/69 H 153/67 H 153/65 H Pulse Oximetry 91 L 90 L 95 06/24/18 00:00 06/24/18 05:00 06/24/18 05:40 Temperature 97.9 F 97.7 F Pulse Rate 84 79 79 Respiratory Rate 21 18 Blood Pressure 156/71 H 182/75 H 182/75 H Pulse Oximetry 99 96 06/24/18 08:00 Temperature 97.0 F L Pulse Rate 74 Respiratory Rate 18 Blood Pressure 165/72 H Pulse Oximetry 93 L Intake & Output 06/23/18 06/24/18 06/24/18 18:59 06:59 18:59 Intake Total 1919 Balance 1919 Weight 99.4 kg Intake: Oral 1919 Other: # Voids 6 4 Date of Last Bowel Movement 06/23/18 06/23/18 # Bowel Movements 1 Narrative: GENERAL: no acute distress, well developed, well nourished SKIN: Warm and dry. Right hip dressing dry and intact. HEAD: Normocephalic, atraumatic EYES: No scleral icterus. No injection or drainage. NECK: Supple, trachea midline. CARDIOVASCULAR: Regular rate and rhythm without murmurs, gallops, or rubs. RESPIRATORY: Breath sounds equal bilaterally. No accessory muscle use. GASTROINTESTINAL: Abdomen soft, non-tender, nondistended, positive bowel sounds. MUSCULOSKELETAL: No cyanosis, or edema. Moving all extremities. Right foot positive sensation, capillary refill less than 3 seconds, positive movement. Results Procedures completed during hospitalization: DATE OF OPERATION: 06/20/2018 PREOPERATIVE DIAGNOSIS: Right femoral neck fracture. POSTOPERATIVE DIAGNOSIS: Right femoral neck fracture. OPERATION PERFORMED: Right hip bipolar hemiarthroplasty. 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 Head CT 06/20/18 09:55 CONCLUSION: 1. Stable without evidence of acute intracranial process. 2. No evidence of acute infarct, hemorrhage, mass or edema. . Hip X-Ray 06/20/18 09:55 CONCLUSION: 1. No evidence of acute fracture. 2. Superior and inferior pubic rami deformity which have the appearance of old fractures. Chest X-Ray 06/20/18 10:57 CONCLUSION: 1. Senescent changes without acute abnormality. Discharge Plan - Discharge Disposition Patient Disposition: 03 Discharge to SNF - Discharge Condition Condition: Stable - Discharge Order Discharge Orders: Discharge Order (Routine); Ordered 06/23/18 Ordered By: Smitha Wick - Physicians Team Primary Care Provider: UNKNOWN, Attending Provider: Christina Bauer Other Providers: Micah Nelson MD ; [facility] ; [employer], [employer]
== END 2018-06-24 13:01 ==
LOC: NEPD 09:28 → NEDA 09:28 → N06 15:19
PROVIDERS: ADMIT Hospitalist; ATTEND Hospitalist